=== PATIENT | female | born 1980 | race American Indian/Alaskan Native ===

== ENCOUNTER 2018-05-01 13:23 | Emergency (ER) | payer MEDICAID, OTHER ==
[2018-05-01] MEDS ORDERED: TORADOL IM ONE (14:00)
[2018-05-01 14:23] LABS: Basophils % (Auto) 0.2 % (0.0-1.8); Eosinophils # (Auto) 0.1 K/mm3 (0.0-0.4); Eosinophils % (Auto) 2.2 % (0.0-4.3); Hematocrit 35.2 % (30.3-42.9); Hemoglobin 11.4 gm/dl (10.1-14.3); Lymphocytes # (Auto) 1.5 K/mm3 (1.2-5.4); Lymphocytes % (Auto) 31.5 % (13.4-35.0); Mean Corpuscular HGB Conc 33 % (30-34); Mean Corpuscular Volume 85 fl (79-97); Monocytes # (Auto) 0.3 K/mm3 (0.0-0.8); Platelet Count 214 K/mm3 (140-440); Red Blood Count 4.15 M/mm3 (3.65-5.03); Red Cell Distribution Width 15.7 % (13.2-15.2)
[2018-05-01 14:33] LABS: BUN/Creatinine Ratio 23; Blood Urea Nitrogen 16 mg/dL (7-17); Calcium 8.7 mg/dL (8.4-10.2); Hemolysis Index 2
--- NOTE | 2018-05-01 14:35 | Emergency Department Report ---
ED Chest Pain HPI - General Chief Complaint: Chest Pain Stated Complaint: CHEST PAIN/LEFT BOOB SWOLLEN Time Seen by Provider: 05/01/18 13:51 Source: patient Mode of arrival: Ambulatory Limitations: No Limitations - History of Present Illness Initial Comments: 37-year-old female with past medical history of tubal ligation presents to the hospital complaining of chest pain 1 week. Pain is in the left side of her chest described as a intermittent tightness that is worse with movement and deep inspiration. Mild shortness of breath noted. She denies nausea, vomiting, diaphoresis, calf tenderness, leg edema, or DVT/PE. She complains of recent URI symptoms that are improving with a residual cough. No fever reported. Patient just traveled here from the [place] via bus on April 02. Patient feels like her left breast is swollen she denies nipple discharge. - Related Data Previous Rx's Medication Instructions Recorded Last Taken Type Cyclobenzaprine [Flexeril] 10 mg PO QHS PRN #10 tablet 03/10/18 Unknown Rx Ibuprofen [Motrin] 600 mg PO Q8H PRN #20 tablet 03/10/18 Unknown Rx Ibuprofen [Motrin] 800 mg PO Q8HR PRN #30 tablet 05/01/18 Unknown Rx traMADol [Ultram 50 MG tab] 50 mg PO Q6HR PRN #20 tablet 05/01/18 Unknown Rx Allergies Allergy/AdvReac Type Severity Reaction Status Date / Time No Known Allergies Allergy Verified 05/01/18 13:38 Heart Score - HEART Score History: Slightly suspicious EKG: Normal Age: < 45 Risk factors: 1-2 risk factors Troponin: < normal limit HEART Score: 1 ED Review of Systems ROS: Stated complaint: CHEST PAIN/LEFT BOOB SWOLLEN Other details as noted in HPI Comment: All other systems reviewed and negative ED Past Medical Hx - Past Medical History Previous Medical History?: No - Surgical History Additional Surgical History: tonsils, tubal ligation - Social History Smoking Status: Current Every Day Smoker Substance Use Type: Marijuana - Medications Home Medications: Home Medications Medication Instructions Recorded Confirmed Last Taken Type Cyclobenzaprine [Flexeril] 10 mg PO QHS PRN #10 tablet 03/10/18 Unknown Rx Ibuprofen [Motrin] 600 mg PO Q8H PRN #20 tablet 03/10/18 Unknown Rx Ibuprofen [Motrin] 800 mg PO Q8HR PRN #30 tablet 05/01/18 Unknown Rx traMADol [Ultram 50 MG tab] 50 mg PO Q6HR PRN #20 tablet 05/01/18 Unknown Rx ED Physical Exam - General Limitations: No Limitations - Other Other exam information: General: No limitations, patient is alert in no acute distress Head exam: Atraumatic, normocephalic Eyes exam: Normal appearance, pupils equal reactive to light, extraocular moveme nts intact ENT: Moist mucous membrane, normal oropharynx Neck exam: Normal inspection, full range of motion, no meningismus nontender Respiratory exam: Clear to auscultation bilateral, no wheezes, rales, crackles. Chest wall nontender. No breast asymmetry, breast tenderness, palpable abscess or nipple discharge. Cardiovascular: Normal rate and rhythm, normal heart sounds Abdomen: Soft, nondistended, and nontender, with normal bowel sounds, no rebound, or guarding Extremity: Full range of motion normal inspection no deformity, no calf tenderness or edema Back: Normal Inspection, full range of motion, no tenderness Neurologic: Alert, oriented x3, cranial nerves intact, no motor or sensory d eficit Psychiatric: normal affect, normal mood Skin: Warm, dry, intact ED Course Vital Signs 05/01/18 13:38 Temperature 98.6 F Pulse Rate 94 H Respiratory 18 Rate Blood Pressure 126/77 O2 Sat by Pulse 100 Oximetry FRED score - Fred Score Age > 65: (0) No Aspirin use within the Past 7 Days: (0) No 3 or more CAD Risk Factors: (0) No 2 or more Angina events in past 24 hrs: (0) No Known CAD with more than 50% Stenosis: (0) No Elevated Cardiac Markers: (0) No ST Deviation Greater than 0.5mm: (0) No FRED Score: 0 ED Medical Decision Making - Lab Data Result diagrams: 05/01/18 14:01 05/01/18 14:01 Lab Results 05/01/18 05/01/18 05/01/18 Range/Units 14:01 14:01 14:01 WBC 4.9 (4.5-11.0) K/mm3 RBC 4.15 (3.65-5.03) M/mm3 Hgb 11.4 (10.1-14.3) gm/dl Hct 35.2 (30.3-42.9) % MCV 85 (79-97) fl MCH 28 (28-32) pg MCHC 33 (30-34) % RDW 15.7 H (13.2-15.2) % Plt Count 214 (140-440) K/mm3 Lymph % (Auto) 31.5 (13.4-35.0) % Rogers % (Auto) 6.0 (0.0-7.3) % Eos % (Auto) 2.2 (0.0-4.3) % Baso % (Auto) 0.2 (0.0-1.8) % Lymph # 1.5 (1.2-5.4) K/mm3 Rogers # 0.3 (0.0-0.8) K/mm3 Eos # 0.1 (0.0-0.4) K/mm3 Baso # 0.0 (0.0-0.1) K/mm3 Seg Neutrophils % 60.1 (40.0-70.0) % Seg Neutrophils # 2.9 (1.8-7.7) K/mm3 D-Dimer 437.56 H (0-234) ng/mlDDU Sodium 140 (137-145) mmol/L Potassium 3.7 (3.6-5.0) mmol/L Chloride 104.8 (98-107) mmol/L Carbon Dioxide 27 (22-30) mmol/L Anion Gap 12 mmol/L BUN 16 (7-17) mg/dL Creatinine 0.7 (0.7-1.2) mg/dL Estimated GFR > 60 ml/min BUN/Creatinine Ratio 23 % Glucose 84 (65-100) mg/dL Calcium 8.7 (8.4-10.2) mg/dL Troponin T < 0.010 (0.00-0.029) ng/mL HCG, Qual (Negative) 05/01/18 Range/Units 14:01 WBC (4.5-11.0) K/mm3 RBC (3.65-5.03) M/mm3 Hgb (10.1-14.3) gm/dl Hct (30.3-42.9) % MCV (79-97) fl MCH (28-32) pg MCHC (30-34) % RDW (13.2-15.2) % Plt Count (140-440) K/mm3 Lymph % (Auto) (13.4-35.0) % Rogers % (Auto) (0.0-7.3) % Eos % (Auto) (0.0-4.3) % Baso % (Auto) (0.0-1.8) % Lymph # (1.2-5.4) K/mm3 Rogers # (0.0-0.8) K/mm3 Eos # (0.0-0.4) K/mm3 Baso # (0.0-0.1) K/mm3 Seg Neutrophils % (40.0-70.0) % Seg Neutrophils # (1.8-7.7) K/mm3 D-Dimer (0-234) ng/mlDDU Sodium (137-145) mmol/L Potassium (3.6-5.0) mmol/L Chloride (98-107) mmol/L Carbon Dioxide (22-30) mmol/L Anion Gap mmol/L BUN (7-17) mg/dL Creatinine (0.7-1.2) mg/dL Estimated GFR ml/min BUN/Creatinine Ratio % Glucose (65-100) mg/dL Calcium (8.4-10.2) mg/dL Troponin T (0.00-0.029) ng/mL HCG, Qual Negative (Negative) - EKG Data -: EKG Interpreted by Vt EKG shows normal: sinus rhythm, axis (qrs 67), QRS complexes (qrsd 125), ST-T waves (no stemi) Rate: normal - EKG Data When compared to previous EKG there are: previous EKG unavailable - Radiology Data Radiology results: report reviewed FINAL REPORT EXAM: CT ANGIO CHEST HISTORY: left cp, elevated ddimer COMPARISON: None TECHNIQUE: Multiple contiguous axial images were obtained through the chest after administration of IV contrast. 3D maximal intensity projection images were provided for review. Reformatted coronal and sagittal images were also provided for review FINDINGS: Medical devices: None. Thyroid: Normal. Lymph nodes: No significant mediastinal, hilar, or axillary lymphadenopathy. Vasculature: Normal pulmonary artery without filling defect to suggest pulmonary embolism. Normal caliber of the thoracic aorta with a conventional branching pattern of the aortic arch. Heart: Normal heart size. Other mediastinal structures: Small hiatal hernia. Lung parenchyma: No focal consolidation. No suspicious nodule or mass. Airways: Patent. No bronchiectasis. Pleura: No pleural effusion or pneumothorax. Chest wall and spine: No suspicious osseous lesions. No acute fracture or dislocation. Soft tissues are normal. Upper Abdomen: No acute abnormality IMPRESSION: 1. No evidence of pulmonary embolism. 2. No acute intrathoracic pathology. - Medical Decision Making Patient received Toradol in the ED her pain since she is driving. D-dimer elevated with normal CT a clinical signs as seen. Patient diagnosed atypical chest pain will be treated symptomatically and outpatient follow-up encouraged. Critical Care Time: No Critical care attestation.: If time is entered above; I have spent that time in minutes in the direct care of this critically ill patient, excluding procedure time. ED Disposition Clinical Impression: Atypical chest pain Disposition: TO HOME OR SELFCARE Is pt being admited?: No Does the pt Need Aspirin: No Condition: Stable Instructions: Chest Pain (ED) Additional Instructions: Take the medication as prescribed. Follow up with your doctor or the doctor provided. Return if symptoms worsen as indicated by your discharge instructions Prescriptions: Ibuprofen [Motrin] 800 mg PO Q8HR PRN #30 tablet PRN Reason: Pain, Moderate (4-6) traMADol [Ultram 50 MG tab] 50 mg PO Q6HR PRN #20 tablet PRN Reason: Pain Referrals: [facility] [Provider Group] - 3-5 Days SARI SIGALA MD [Referring] - 3-5 Days Time of Disposition: 16:34
--- NOTE | 2018-05-01 16:14 | Cat Scan Report ---
FINAL REPORT EXAM: CT ANGIO CHEST HISTORY: left cp, elevated ddimer COMPARISON: None TECHNIQUE: Multiple contiguous axial images were obtained through the chest after administration of IV contrast. 3D maximal intensity projection images were provided for review. Reformatted coronal and sagittal images were also provided for review FINDINGS: Medical devices: None. Thyroid: Normal. Lymph nodes: No significant mediastinal, hilar, or axillary lymphadenopathy. Vasculature: Normal pulmonary artery without filling defect to suggest pulmonary embolism. Normal miller iber of the thoracic aorta with a conventional branching pattern of the aortic arch. Heart: Normal heart size. Other mediastinal structures: Small hiatal hernia. Lung parenchyma: No focal consolidation. No suspicious nodule or mass. Airways: Patent. No bronchiectasis. Pleura: No pleural effusion or pneumothorax. Chest wall and spine: No suspicious osseous lesions. No acute fracture or dislocation. Soft tissues a re normal. Upper Abdomen: No acute abnormality IMPRESSION: 1. No evidence of pulmonary embolism. 2. No acute intrathoracic pathology.
[2018-05-02 14:09] VITALS: BP 126/77
== END 2018-05-01 16:50 | disposition home or self-care (01) ==
LOC: ED 13:23
DX: R07.89 Other chest pain (principal); F17.200 Nicotine dependence, unspecified, uncomplicated; F12.10 Cannabis abuse, uncomplicated
CPT/HCPCS: 36415; 71275; 80048; 84484; 84703; 85025; 85379; 93005; 93010; 96372; 99284; J1885; Q9967

== ENCOUNTER 2021-02-26 11:49 | Emergency (ER) | payer SELFPAY ==
[2021-02-26] MEDS ORDERED: SODIUM CHLORIDE 0.9% 500 ML 500 ML IV ONE (12:39)
[2021-02-26] MEDS ORDERED: METOCLOPRAMIDE 10 MG/2 ML INJ IV ONE (12:39)
[2021-02-26] MEDS ORDERED: diphenhydrAMINE 50 MG/ML VIAL IV ONE (12:39)
[2021-02-26] MEDS ORDERED: KETOROLAC 30 MG/1 ML INJ IV ONE (12:39)
[2021-02-26] MEDS ORDERED: DICYCLOMINE 10 MG/5 ML ORAL LIQD PO ONE (12:39)
[2021-02-26 12:57] LABS: Bilirubin,Urine NEG (Negative); Blood,Urine NEG (Negative); Color,Urine Yellow (Yellow); Mucus,Urine 3+ /HPF; Protein,Urine <15 mg/dL mg/dL (Negative); WBC,Urine < 1.0 /HPF (0.0-6.0)
--- NOTE | 2021-02-26 13:05 | Emergency Department Report ---
ED General Adult HPI - General Chief complaint: Abdominal Pain Stated complaint: ABDOMINAL PAIN, HEADACHE Time Seen by Provider: 02/26/21 12:38 Source: patient Mode of arrival: Ambulatory Limitations: No Limitations - History of Present Illness Initial comments: 40-year-old -[place] female presents to the emergency room complaining of lower abdominal pain, headache for a few days. States with acid reflux is flaring up. Admits to nausea denies any fever no dysuria no vaginal bleeding no urinary urgency frequency. States she has been taken Aleve ibuprofen this morning she took Aleve for [id number] pills. Her last menstrual period is 02/26/2021. She is supposed to be on omeprazole for her acid reflux but has not taken it. She states her headache is more on the left frontal side. States that the light bothers her a little bit. Onset/Timin -: days(s) Location: head, abdomen - Related Data Previous Rx's Medication Instructions Recorded Last Taken Type Cyclobenzaprine [Flexeril] 10 mg PO QHS PRN #10 tablet 03/10/18 Unknown Rx Ibuprofen [Motrin] 600 mg PO Q8H PRN #20 tablet 03/10/18 Unknown Rx Ibuprofen [Motrin] 800 mg PO Q8HR PRN #30 tablet 05/01/18 Unknown Rx traMADoL [Ultram 50 MG tab] 50 mg PO Q6HR PRN #20 tablet 05/01/18 Unknown Rx Allergies Allergy/AdvReac Type Severity Reaction Status Date / Time No Known Allergies Allergy Verified 05/01/18 13:38 ED Review of Systems ROS: Stated complaint: ABDOMINAL PAIN, HEADACHE Other details as noted in HPI Comment: All other systems reviewed and negative ED Past Medical Hx - Surgical History Additional Surgical History: tonsils, tubal ligation - Social History Substance Use Type: None - Medications Home Medications: Home Medications Medication Instructions Recorded Confirmed Last Taken Type Cyclobenzaprine [Flexeril] 10 mg PO QHS PRN #10 tablet 03/10/18 Unknown Rx Ibuprofen [Motrin] 600 mg PO Q8H PRN #20 tablet 03/10/18 Unknown Rx Ibuprofen [Motrin] 800 mg PO Q8HR PRN #30 tablet 05/01/18 Unknown Rx traMADoL [Ultram 50 MG tab] 50 mg PO Q6HR PRN #20 tablet 05/01/18 Unknown Rx ED Physical Exam - General Limitations: No Limitations General appearance: alert, in no apparent distress - Head Head exam: Present: atraumatic, normocephalic - Eye Eye exam: Present: normal appearance - ENT ENT exam: Present: mucous membranes moist - Neck Neck exam: Present: normal inspection - Respiratory Respiratory exam: Present: normal lung sounds bilaterally. Absent: respiratory distress - Cardiovascular Cardiovascular Exam: Present: regular rate, normal rhythm. Absent: systolic murmur, diastolic murmur, rubs, gallop - GI/Abdominal GI/Abdominal exam: Present: soft, normal bowel sounds. Absent: distended, tenderness, guarding, rebound - Extremities Exam Extremities exam: Present: normal inspection - Back Exam Back exam: Present: normal inspection - Neurological Exam Neurological exam: Present: alert, oriented X3, normal gait - Expanded Neurological Exam Expanded Cranial nerves: EOM's Intact: Normal, Gag Reflex: Normal, Tongue Deviation: Normal, Nystagmus: Normal, Facial Sensation: Normal, Facial Palsy with Forehead Movement: Normal, Facial Palsy without Forehead Movement: Normal Cerebellar function: Finger to Nose: Normal, Heel to French: Normal, Romberg: Normal Upper motor neuron: Mayco Neglect: Normal, Pronator Drift: Normal, Babinski Sign: Normal, Sensory Extinction: Normal Sensory exam: Upper Extremity Light Touch: Normal, Upper Extremity Pin Prick: Normal, Upper Extremity Temperature: Normal, UE 2 Point Discrimination: Normal, Lower Extremity Light Touch: Normal, Lower Extremity Pin Prick: Normal, Lower Extremity Temperature: Normal, LE 2 Point Discrimination: Normal Motor strength exam: RUE: 4, LUE: 4, RLE: 4, LLE: 4 Best Eye Response (Tracie): (4) open spontaneously Best Motor Response (Tracie): (6) obeys commands Best Verbal Response (Patterson): (5) oriented Patterson Total: 15 - Psychiatric Psychiatric exam: Present: normal affect, normal mood - Skin Skin exam: Present: warm, dry, intact, normal color. Absent: rash ED Course Vital Signs 02/26/21 11:52 Temperature 98.4 F Pulse Rate 89 Respiratory 16 Rate Blood Pressure 109/71 O2 Sat by Pulse 98 Oximetry - Reevaluation(s) Reevaluation #1: 02/26/21 14:14 Patient reports she feels much better. ED Medical Decision Making - Medical Decision Making 40-year-old -[place] female presents to the emergency room complaining of lower abdominal pain, headache for a few days. States with acid reflux is flaring up. Admits to nausea denies any fever no dysuria no vaginal bleeding no urinary urgency frequency. States she has been taken Aleve ibuprofen this morning she took Aleve for [id number] pills. Her last menstrual period is 02/26/2021. She is supposed to be on omeprazole for her acid reflux but has not taken it. She states her headache is more on the left frontal side. States that the light bothers her a little bit. The patient presents to the emergency room department with a headache. The patient is now resting comfortably and feels better, is alert talkative, interactive and in no distress. The patient appears well and is able to tolerate p.o. fluids. The repeat examination is unremarkable and benign. The patient is neurologically intact, has a normal mental status, and is ambulatory in the emergency room. The history, exam diagnostic testing (if any) and the patient's current condition do not suggest meningitis, stroke, sepsis, subarachnoid hemorrhage and, intracranial bleeding, encephalitis, temporal arteritis or any other significant pathology to warrant further testing, continued ED treatment, admission, neurological consultation or other specific evaluations at this point. The vital signs have been stable. The patient's condition is stable and appropriate for discharge. The patient will pursue further outpatient evaluation with the primary care provider or other designated or consulting physician as indicated in the discharge instructions. Critical care attestation.: If time is entered above; I have spent that time in minutes in the direct care of this critically ill patient, excluding procedure time. ED Disposition Clinical Impression: Headache, Acid reflux Disposition: 01 HOME / SELF CARE / HOMELESS Is pt being admited?: No Does the pt Need Aspirin: No Condition: Stable Instructions: Abdominal Pain (ED), Heartburn, [id number], General Headache Without Cause Additional Instructions: Please increase your fluid intake. You can take [id number] Excedrin Migraine to help with your headaches. Very important you follow-up with gastroenterology as well as a primary care provider. Referrals: ANGUS WOODARD MD [Primary Care Provider] - 3-5 Days [facility] [Provider Group] - 3-5 Days LINDA DRAPER MD [Staff Physician] - 3-5 Days Forms: Work/School Release Form(ED) Time of Disposition: 14:17
[2021-02-26 14:49] VITALS: BP 120/74
== END 2021-02-26 14:48 | disposition home or self-care (01) ==
LOC: ED 11:49
DX: K21.9 Gastro-esophageal reflux disease without esophagitis (principal); R51.9 Headache, unspecified
CPT/HCPCS: 81001; 96374; 96375; 99283; J1200; J1885; J2765

== ENCOUNTER 2021-08-18 13:12 | Emergency (ER) | payer SELFPAY ==
[2021-08-18 14:25] VITALS: BP 132/84
== END 2021-08-19 00:30 | disposition left against medical advice (07) ==
LOC: ED 13:12
DX: Z01.00 Encounter for examination of eyes and vision without abnormal findings (principal); Z53.21 Procedure and treatment not carried out due to patient leaving prior to being seen by health care provider